=== PATIENT | female | born 1970 | race Caucasian/White ===

== ENCOUNTER → 2017-03-13 | Day surgery (SDC) | payer OTHER ==
--- NOTE | 2017-03-14 08:45 | OP ---
DATE OF OPERATION: 03/13/2017 PREOPERATIVE DIAGNOSIS: Abnormal right mammography. POSTOPERATIVE DIAGNOSIS: Abnormal right mammography. PROCEDURE: Right stereotactic needle biopsy with clips. SURGEON: Zo Dick MD ANESTHESIA: Local. COMPLICATIONS: None. This was a sterile procedure. INDICATIONS FOR PROCEDURE: Patient presented for a screening mammogram that again noted the same density, what appeared to be an area of distortion on the inferior right breast, inferior inner right breast, and a biopsy was recommended. The procedure was discussed including the need for a clip in the final procedure. PROCEDURE IN DETAIL: Patient was brought to [facility], laid prone on the OR table. Using the lateral approach, the density in the inferior right breast was identified. A sterile prep was obtained. A target was chosen. There was a positive stroke margin. Using Betadine and 1% lidocaine, a 10-gauge Suros device was used to take several cores from this area. Cores were sent to Pathology in formalin. A clip was deployed in the area. Hemostasis was secured with direct pressure. The incision was closed with Steri-Strips. She tolerated the procedure well and left the breast imaging center in good condition. ZO DICK M.D. [id number]
--- NOTE | 2017-03-14 16:10 | PATH ---
Surgical Pathology Report Patient Name: SHARIF HELLER [facility]. Rec. #: [id number] /Age/Gender: 1970 (Age: 47) / F Account: [id number] Location: [facility] Taken: 03/13/2017 Received: 03/13/2017 Reported: 03/14/2017 Physicians: Zo Vargas M.D. Specimen(s) Received RIGHT BREAST INFERIOR DENSITY STEREOTACTIC BIOPSY Clinical History Nonpalpable lesion Mammographic findings: Suspicious Final Diagnosis BREAST, RIGHT, INFERIOR DENSITY, STEREOTACTIC BIOPSY: BENIGN BREAST TISSUE SHOWING STROMAL FIBROSIS AND FOCAL SECRETORY CHANGE. Electronically Signed Irma Degroot M.D. Gross Description Received in formalin labeled "right breast with inferior density," is a 2.3 x 1.8 x 0.3 cm aggregate of multiple marin-yellow, irregular to cylindrical portions of fibroadipose tissue. The formalin is filtered and the specimen is entirely submitted in one cassette. Time to formalin fixation: 5 minutes Total formalin fixation time: Approximately 6 hours. 03/13/2017 [facility]03/13/2017
== END | disposition home or self-care (01) ==
LOC: FMAMMOTONE 09:53
PROVIDERS: ATTEND Surgery
PROC: 0HBT3ZX Excision of Right Breast, Percutaneous Approach, Diagnostic (ICD-10-PCS; principal; 2017-03-13)
DX: N60.31 Fibrosclerosis of right breast (principal); R92.1 Mammographic calcification found on diagnostic imaging of breast
CPT/HCPCS: 19081; 88305-TC; A4648